=== PATIENT | male | born 1950 | race Native Hawaiian/Other Pacific Islander ===

== ENCOUNTER → 2017-05-12 19:33 | Outpatient (CLI) | payer OTHER | END | disposition home or self-care (01) | LOC: AMB 19:33 | DX: Z04.1 Encounter for examination and observation following transport accident (principal) ==

== ENCOUNTER 2019-05-19 11:14 | Outpatient (CLI) | payer OTHER, BC | END 2019-05-19 19:43 | disposition home or self-care (01) | LOC: CT 11:14 | DX: R31.0 Gross hematuria (principal) ==